=== PATIENT | female | born 1950 | race Caucasian/White ===

== ENCOUNTER → 2021-09-25 | Outpatient (CLI) | payer MEDICARE, SELFPAY ==
--- NOTE | 2021-09-25 11:38 | US_ITS ---
STUDY: RENAL ULTRASOUND - COMPLETE REASON FOR EXAM: Female, 71 years old. UTI TECHNIQUE: Ultrasound evaluation of the kidneys was performed with real-time and static sanchez-scale imaging. COMPARISON: None. FINDINGS: RIGHT KIDNEY: Normal location of the right kidney, which is normal in size. The right kidney measures 11 cm x 5.7 cm x 4.9 cm. There is a normal cortex of the right kidney. The renal cortex measures 1.1 cm. There is no right renal mass or cyst. There are no right renal calculi. There is no right hydronephrosis. DISTAL RIGHT URETER: There is non-visualization of the distal right ureter. There is no demonstrated right ureterovesical junction calculus. There is a visualized right ureteral jet. LEFT KIDNEY: Normal location of the left kidney, which is normal in size. The left kidney measures 9.9 cm x 4.5 cm x 4.9 cm. There is a normal cortex of the left kidney. The renal cortex measures 1.3 cm. There is no left renal mass or cyst. There are no left renal calculi. There is no left hydronephrosis. DISTAL LEFT URETER: There is non-visualization of the distal left ureter. There is no demonstrated left ureterovesical junction calculus. There is a visualized left ureteral jet. BLADDER: The distended urinary bladder has a volume of 262 ml. There is a normal wall thickness of the distended urinary bladder. There is no demonstrated mass within the urinary bladder. There are no demonstrated bladder calculi. US/Kidney and Bladder IMPRESSION: Normal ultrasound of the kidneys and urinary bladder. Electronically Signed: Wang Medina MD at 12:25 EDT ,
== END | disposition home or self-care (01) ==
LOC: US 11:38
PROVIDERS: PCP Internal Medicine; Referring Provider Urology; Visit Provider Urology
DX: N39.0 Urinary tract infection, site not specified (principal)
CPT/HCPCS: 76770

== ENCOUNTER 2024-04-06 13:00 | Outpatient (RCR) | payer MEDICARE, SELFPAY ==
--- NOTE | 2024-01-20 08:23 | HP.OTEVAL ---
Patient's Visit Information Visit Information Visit Information: JEAN PIERRE HENDERSON is a 73 year old F, referred to Occupational Therapy by Dr. Maximus Ku DO, with a diagnosis of breast cancer. Date of Evaluation: 01/19/24 Occupational Therapist: Stacy Meek, NOLVIA/Jere, CHT Subjective Subjective: This 73 year old female was seen for OT eval with dx of breast cancer: Pt states she has very limited right shoulder ROM from prior injury. Pt states she was going to have a reverse total shoulder on right but now will have to wait. Pt is hopeful she can get a increase in PROM of right shoulder to undergo recommended radiation. Pt feels her left shoulder ROM is limited since her mastectomy. states she has noticed swelling above her left mastectomy incision line. pt state since her fall when she injured her right shoulder she as not been very active. Fall was due to LOB. Pt ambulates with WW or rollator but does not have it with her at this time. He did walk with her for support. records of her diagnostic dx was pulled from Oncology note: 11/25/2023: Patient completed right breast mastectomy and right axillary sentinel lymph node biopsy as well as left breast mastectomy and left axillary sentinel lymph node biopsy. Pathology demonstrated grade 2 invasive lobular carcinoma measuring 10 cm in the right breast, skin is present and involved, carcinoma directly invades into dermis or epidermis without skin ulcerations which does not change T classification, no lymph-vascular invasion is noted, margins are negative and greater than 2 mm, 1/4 lymph nodes contained metastatic disease measuring 2.3 mm with no extranodal extension. Within the left breast there was noted to be grade 2 DCIS measuring 2 cm, 5/19 blocks margins are negative and greater than 2 mm. 3 lymph nodes were obtained and none contained metastatic disease. Right: pT3 pN1a (sn), Left: pTis pN0 (sn) ROM Shoulder: right shoulder fx 2020 left shoulder flexion 95 ROM Comments: pt demo with limited left shoulder AROM of flexion/abduction and ER - pt states she feels a tightness under her arm when she tries to reach her arm up. Lymphedema (Circumferential Measure) MCP: right 19cm left 15cm Wrist: right 17cm left 15cm Lower forearm: right 25cm left 20cm Largest forearm: [id number] left 25cm Elbow: right 27cm left 25cm Largest humerus: right 35cm left 34cm Axcillary: right 40cm left 37cm Upper Exremity Comments: above left mastectomy incision noted swelling bilateral scars very thick and tight with adhering scar tissue to chest wall and noted initiation of left axillary cording right arm 3 days ago dx with cellulitis and currently on antibiotics. Quick DASH-Disab of Arm,Shoulder& Hand Quick DASH Score: 52.2725 Goals Goal: Patient will demonstrate a 20% reduction in edema by discharge: Yes Goal: Patient will demonstrate adequate knowledge of self-bandaging by the end of the first week.: Yes Goal: Patient will demonstrate adequate knowledge of self-massage by the end of the second week.: Yes Goal: Patient will demonstrate adequate knowledge of skin care and precautions by the end of the first week.: Yes Goal: Patient will demonstrate adequate knowledge of therapeutic exercises by discharge.: Yes Goal: Patient will select an appropriate compression garment and demonstrate adequate knowledge of correct donning technique, care and wearing schedule by discharge.: Yes Goal: Patient will voice understanding of need to replace compression garment every four to six months by discharge.: Yes Goal: Patient will demonstrate ROM WFL by discharge.: Yes Goal:: left UE WFL to wash hair. PROM to WFL to tolerate radiation Rehabilitation General Assessment: pt demo with limited PROM of right UE and limited AROM of left UE increasing need of assist with ADLs and IADLs. pt demo with swelling of right UE due to recent cellulitis dx. and swelling on left chest above her incision line. Pt demo need for skilled OT services 2x week for 8 weeks to improve pts PROM of right UE, AROM of left UE - ed.pt on scar mtg, and ed. and initiation of lymphedema mtg. Today therapist initiated AAROM of bilateral UE and gave pt handout- therapist advised pt to get up and move/walk in home every 45 min to increase walking endurance and strength. Rehabilitation Potential: Good Anticipated Interventions Anticipated Interventions: A/AAROM/PROM, Strengthening, Scar Care, Triggerpoint Release, Education re assistive Equipment, Education re Diagnosis, Education re Life-long lymphedema Management, Education re Self-Bandaging Techniques, Education re Skin Care and Precautions, Education re Self Massage Techniques, Education re Correct Donning Tech,Care&Wearing Sched Comp Garments, Caregiver Training and Home Program Visit Plan Frequency: 1-2x /Week Duration: 2 Months TEXT: Thank you for the opportunity to evaluate your patient. For Medicare and Medicare HMO plans, please review the plan of care and approve it. It will need to be FAXED BACK to us at [phone] for Medicare purposes. Please let me know if there are questions or concerns regarding this plan of care. Physician Signature: Date:
== END 2024-08-17 16:52 | disposition home or self-care (01) ==
LOC: OT 13:00
PROVIDERS: PCP Family Medicine; Referring Provider Student in an Organized Health Care Education/Training Program; Visit Provider Student in an Organized Health Care Education/Training Program
DX: C50.911 Malignant neoplasm of unspecified site of right female breast (principal); C50.912 Malignant neoplasm of unspecified site of left female breast
CPT/HCPCS: 97110; 97167; 97530